=== PATIENT | male | born 1980 | race Caucasian/White ===

== ENCOUNTER 2020-09-23 09:12 | Outpatient (CLI) | payer BC, SELFPAY ==
--- NOTE | ~2020-09-23 | US_ITS ---
EXAMINATION:US venous doppler LE LT INDICATION:Follow-up DVT TECHNIQUE: Multiple grayscale, color flow and Doppler images of the left lower extremity deep venous systems were obtained and reviewed. COMPARISON:No prior studies for comparison. FINDINGS: The common femoral, superficial femoral and popliteal veins demonstrate normal respiratory variation, augmentation and compressibility. Color flow is also seen within the posterior tibial, pe roneal, greater saphenous and profunda veins. IMPRESSION: 1: No lower extremity deep venous thrombosis. Reviewed, dictated and finalized at location A. SOFTWARE TESTER
--- NOTE | ~2020-09-23 | CT_ITS ---
EXAMINATION: CTA chest PE protocol EXAM DATE: 09/23/2020 10:03 INDICATION: Acute pulmonary embolism. TECHNIQUE: Spiral CTA of the chest (pulmonary arteries) was performed with 200 cc Omnipaque 350 intr avenous contrast injection. Images were acquired during the pulmonary arterial phase. Coronal maxi mum intensity projection 3D-reconstructions were created by the technologist on dedicated workstation . Axial, coronal and sagittal reformatted images were reviewed. The dose-length product (DLP) for t his examination was 2144.71 mGy-cm. Patient was injected twice due to poor pulmonary arterial opacifi cation. The exposure was tailored according to patient size (auto mA exposure control), and iterativ e reconstruction (ASIR) was used as additional dose reduction technique. There is no prior study for comparison. FINDINGS: There is suboptimal pulmonary arterial opacification but no pulmonary emboli suspected. No thoracic aortic dissection. The lungs are clear. There are no pleural or pericardial effusions. Tracheobronchial tree is patent. There is no mediastinal, hilar or axillary lymphadenopathy. The re is no pneumothorax. Heart normal in size. No evidence of coronary arterial calcification. The re is hepatic steatosis. There is thoracic spondylosis without osteoblastic or osteolytic lesions id entified. IMPRESSION: 1. No acute cardiopulmonary findings. 2. Hepatic steatosis. Reviewed, dictated and finalized at location B. RAL STERILE TECHNICIAN
== END 2020-09-23 09:13 | disposition home or self-care (01) ==
LOC: ANHIMG 09:17
PROVIDERS: PCP Internal Medicine; Visit Provider Internal Medicine Hematology & Oncology
DX: I82.4Y9 Acute embolism and thrombosis of unspecified deep veins of unspecified proximal lower extremity (principal); I26.99 Other pulmonary embolism without acute cor pulmonale; I27.81 Cor pulmonale (chronic); K76.0 Fatty (change of) liver, not elsewhere classified; M47.814 Spondylosis without myelopathy or radiculopathy, thoracic region
CPT/HCPCS: 71275; 93971; Q9967

== ENCOUNTER 2022-09-06 16:34 | Outpatient (CLI) | payer BC, SELFPAY ==
--- NOTE | ~2022-09-06 | US_ITS ---
EXAMINATION: US venous doppler LE RT DATE: 09/06/2022 17:02 INDICATION: M79.604 - Pain in right leg . TECHNIQUE: Grayscale images without and with compression and Doppler images of the right lower extrem ity veins were obtained. COMPARISON: 09/23/2020 FINDINGS: The right common femoral vein, profunda (deep) femoral vein, femoral vein, popliteal vein, peroneal v ein, and posterior tibial veins are patent. IMPRESSION: 1. Patent right lower extremity veins. No evidence of deep venous thrombosis. Reviewed, dictated and finalized at location K. HOUSE TEAM LEADER
== END 2022-09-06 16:35 | disposition home or self-care (01) ==
PROVIDERS: PCP Family Medicine; Visit Provider Family Medicine
DX: M79.604 Pain in right leg (principal); Z86.718 Personal history of other venous thrombosis and embolism
CPT/HCPCS: 93971

== ENCOUNTER 2022-09-29 01:53 | Day surgery (SDC) | payer BC, SELFPAY ==
[2022-09-14 15:19] VITALS: BMI 54.4
[2022-09-29 12:08] VITALS: BP 161/83; PULSE 80; RESP 20; TEMP 36.5; O2SAT 96
[2022-09-29] MEDS: LACTATED RINGERS 1,000 ML 150 ML IV CONT (12:15)
--- NOTE | 2022-09-29 12:49 | WPDHPUPDATE1 ---
History and Physical Update Update Date/Time: 09/29/22 12:49 History and Physical has been reviewed, including an updated exam of the patient. There are NO changes in the patient's condition. Risks, benefits, and alternatives have been discussed and questions answered. Patient agrees to proceed with procedure.
--- NOTE | 2022-09-29 12:53 | WPDANESEPPF ---
Anes - Initial Pre Proc Eval Procedure: Operation Date: 09/29/22 13:00 Proposed Procedures p Esophagogastroduodenoscopy & Colonoscopy - Mark Garcias MD Date/Time: 09/29/22 12:53 Surgeon: Mark Garcias MD Pre Op Diagnosis: epigastric pain; rectal bleeding Patient Data Age: 42 Gender: M Height: 1.8 m Weight: 171.4 kg Last Vital Signs Temp 36.5 C 09/29/22 12:08 Pulse 80 09/29/22 12:08 Resp 20 09/29/22 12:08 BP 161/83 H 09/29/22 12:08 Pulse Ox 96 09/29/22 12:08 O2 Del Method Room Air 09/29/22 12:08 Allergies Allergy/AdvReac Type Severity Reaction Status Date / Time cefuroxime [From Ceftin] Allergy Unknown Verified 09/29/22 12:07 penicillin G AdvReac GI - Verified 09/29/22 12:07 upset, immed. emesis Home Medications Medication Instructions Recorded Confirmed Type aspirin 81 mg tablet,delayed 81 mg PO DAILY 08/19/22 09/14/22 History release (Adult Low Dose Aspirin) cariprazine 6 mg capsule (Vraylar) 6 mg PO DAILY 08/19/22 09/14/22 History desvenlafaxine succinate 100 mg 100 mg PO DAILY 08/19/22 09/14/22 History tablet,extended release 24 hr (Pristiq) lamotrigine 200 mg tablet 200 mg PO DAILY 08/19/22 09/14/22 History (Lamictal) levomefolate 15 mg-algal oil 1 cap PO DAILY 08/19/22 09/14/22 History 90.314 mg capsule (Deplin (algal oil)) temazepam 30 mg capsule 30 mg PO QHS PRN Anxiety 08/19/22 09/14/22 History cyclobenzaprine 10 mg tablet 10 mg PO TID PRN muscle spasm #60 09/22/22 09/29/22 Rx tabs dextromethorphan IR 45 1 tablet PO BID 09/22/22 09/29/22 History mg-bupropion ER 105 mg biphasic tablet (Auvelity) atorvastatin 20 mg tablet 20 mg PO DAILY #90 tabs 09/24/22 09/29/22 Rx Patient hx anesthesia problems: none Family hx anesthesia problems: none Results Review: All pre-operative results and documents have been reviewed as part of the pre-operative evaluation. [facility] Past Medical History Medical History (Updated 09/29/22 @ 12:57 by Aquiles Cabrera MD) Allergies Arthritis Biceps muscle tear Bleeding hemorrhoid Depression Elevated fasting glucose Epigastric pain History of DVT (deep vein thrombosis) Hyperlipidemia Morbid obesity with BMI of 50.0-59.9, adult TIFFANIE (obstructive sleep apnea) Right leg pain Strain of right Achilles tendon Surgical History Surgical History H/O knee surgery H/O wrist surgery Family History Family History Father Malignant neoplasm of prostate Diabetes mellitus Heart disease Thyroid disorder Mother Skin cancer Hypertension Heart disease Sibling Malignant neoplasm of prostate Social History Social History Smoking status: Never smoker Alcohol intake: never Substance use: never Substance use type: does not use Living arrangements: with family 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 Informed Consent: The patient's anesthetic plan and its attendant risks and benefits were discussed with the patient/family/POA. Questions were solicited and answers provided to the satisfaction of the patient/family/POA.
[2022-09-29 13:37] VITALS: BP 132/90; PULSE 78; RESP 16; O2SAT 96
[2022-09-29 13:47] VITALS: BP 135/96; PULSE 88; RESP 17; O2SAT 98
[2022-09-29 13:57] VITALS: BP 134/89; PULSE 73; RESP 16; O2SAT 100
== END 2022-09-29 14:12 | disposition home or self-care (01) ==
PROVIDERS: PCP Family Medicine; Visit Provider Internal Medicine Gastroenterology
PROC: 0DJ08ZZ Inspection of Upper Intestinal Tract, Via Natural or Artificial Opening Endoscopic (ICD-10-PCS; CPT 43235; principal; 2022-09-29 13:00)
DX: K62.5 Hemorrhage of anus and rectum (principal); K64.8 Other hemorrhoids; K29.70 Gastritis, unspecified, without bleeding; K21.9 Gastro-esophageal reflux disease without esophagitis; G47.33 Obstructive sleep apnea (adult) (pediatric); E78.5 Hyperlipidemia, unspecified; F32.A Depression, unspecified; Z86.718 Personal history of other venous thrombosis and embolism; Z79.82 Long term (current) use of aspirin; E66.01 Morbid (severe) obesity due to excess calories; Z68.43 Body mass index [BMI] 50.0-59.9, adult
CPT/HCPCS: 45378; 43239; 88305; J2704; J3010; J7120

== ENCOUNTER 2025-10-08 09:29 | Outpatient (CLI) | payer BC, SELFPAY ==
--- NOTE | ~2025-10-08 | US_ITS ---
EXAMINATION: US venous doppler [facility] DATE: 10/08/2025 10:06 INDICATION: Leg pain TECHNIQUE: Grayscale ultrasound images without and with compression and Doppler ultrasound images of the left lower extremity veins were obtained. COMPARISON: None. FINDINGS: The visualized portions of left common femoral vein, profunda (deep) femoral vein, femoral vein, popliteal vein, peroneal veins, posterior tibial veins, and greater saphenous vein outflow are patent. IMPRESSION: 1. No deep venous thrombosis in the left lower extremity. Reviewed, dictated and finalized at location A. APPLICATIONS ANALYST
== END 2025-10-08 09:30 | disposition home or self-care (01) ==
PROVIDERS: PCP Nurse Practitioner Family; Visit Provider Nurse Practitioner Family
DX: M79.662 Pain in left lower leg (principal); Z86.718 Personal history of other venous thrombosis and embolism
CPT/HCPCS: 93971